=== PATIENT | female | born 1935 | race Two or more races ===

== ENCOUNTER 2020-01-31 10:45 | Outpatient (CLI) | payer OTHER ==
[~2020-01-31 10:45] MED LIST: ROBAXIN500 MG PO
== END 2020-02-04 11:17 | disposition home or self-care (01) ==
LOC: RX STUDY 10:45
PROVIDERS: ATTEND Surgery
DX: R10.2 Pelvic and perineal pain (principal); R15.9 Full incontinence of feces; K59.4 Anal spasm
CPT/HCPCS: 74018; 78266; A9541

== ENCOUNTER 2020-05-15 11:15 | Inpatient (IN) | payer OTHER ==
[~2020-05-15] VITALS: Ht 152.4 cm; Wt 58.1 kg
[2020-05-15] MEDS ORDERED: CARDIZEM LA180 MG PO (15:13)
[2020-05-15] MEDS ORDERED: ADULT LOW DOSE81 M1 PO (15:14)
[2020-05-15] MEDS ORDERED: COZAAR100 MG (15:14)
[2020-05-15] MEDS ORDERED: ALLERGY RELIE15.8 ML NASAL (15:15)
[2020-05-15] MEDS ORDERED: CLONAZEPAM0.5 MG PO (15:15)
[2020-05-22] MEDS ORDERED: KETOCONAZOLE15 GM (08:11)
[2020-05-25] MEDS ORDERED: COLACE100 MG PO (08:35)
[2020-05-25] MEDS ORDERED: INTESTINEX680 M1 PO (08:35)
== END 2020-05-25 10:49 | disposition home or self-care (01) | DRG 331 ==
LOC: O/R 05-22 07:03 → SURG 05-22 07:03 → SURH 05-22 11:15 → SURG 05-22 15:20
PROVIDERS: ADMIT Surgery; ATTEND Surgery
PROC: 0DTN4ZZ Resection of Sigmoid Colon, Percutaneous Endoscopic Approach (ICD-10-PCS; principal; 2020-05-22 12:00)
DX: K62.4 Stenosis of anus and rectum (principal); K59.4 Anal spasm; K59.02 Outlet dysfunction constipation; K57.30 Diverticulosis of large intestine without perforation or abscess without bleeding; D64.9 Anemia, unspecified; R15.9 Full incontinence of feces; I10 Essential (primary) hypertension

== ENCOUNTER 2021-07-17 09:55 | Emergency (ER) | payer OTHER ==
[~2021-07-17] VITALS: Ht 152.4 cm; Wt 54.4 kg
[~2021-07-17 09:55] MED LIST changes: +ADULT LOW DOSE81 M1 PO; +ALLERGY RELIE15.8 ML NASAL; +CARDIZEM LA180 MG PO; +CLONAZEPAM0.5 MG PO; +COLACE100 MG PO; +COZAAR100 MG; +INTESTINEX680 M1 PO; +KETOCONAZOLE15 GM
[2021-07-17] MEDS ORDERED: SALINE NASAL SP88 ML (10:06)
== END 2021-07-17 17:06 | disposition home or self-care (01) ==
LOC: ER 09:55
DX: N39.0 Urinary tract infection, site not specified (principal); Z20.822 Contact with and (suspected) exposure to COVID-19

== ENCOUNTER 2024-09-26 08:29 | Emergency (ER) | payer OTHER ==
[~2024-09-26] VITALS: Ht 152.4 cm; Wt 50.8 kg
[~2024-09-26 08:29] MED LIST changes: +SALINE NASAL SP88 ML
== END 2024-09-26 10:06 | disposition home or self-care (01) ==
LOC: ER 08:42
DX: K64.4 Residual hemorrhoidal skin tags (principal); K57.32 Diverticulitis of large intestine without perforation or abscess without bleeding; I10 Essential (primary) hypertension

== ENCOUNTER 2024-12-13 10:28 | Emergency (ER) | payer OTHER ==
[~2024-12-13] VITALS: Ht 152.4 cm; Wt 49.9 kg
[2024-12-13] MEDS ORDERED: 0.9 % SODIUM CHLORIDE 1,000 ML IV ONE (12:00)
[2024-12-13] MEDS ORDERED: DIATRIZOATE MEGLUMINE, SODIUM 30 ML BOTTLE ONE (12:31)
[2024-12-13 13:03] LABS: BASO % 0.6 % (0.1-1.2); EOS # 0.03 (0.04-0.54); EOS % 0.3 % (0.7-7.0); LYMPH # 1.26 (1.18-3.74); LYMPH % 10.9 % (19.3-53.1); MEAN PLATELET VOLUME 8.30 fl (9.4-12.4); MONO # 0.78 (0.24-0.82); MONO % 6.8 % (4.7-12.5); NEUT # 9.31 (1.56-6.13); NEUT % 80.8 % (34.0-71.1); RED CELL DISTRIBUTION WIDTH 19.1 % (11.6-14.4)
[2024-12-13 13:31] LABS: ALT/SGPT 17.0 U/L (12-78); AST/SGOT 12.0 U/L (15-37); BILIRUBIN TOTAL 0.46 mg/dL (0.3-1.2); BUN CREA RATIO 15.0 (7.0-25.0); CREATININE SERUM 0.55 mg/dL (0.55-1.02); GFR 104.8; GLOBULINA 4.0 G/DL (2.4-3.5); GLUCOSE FASTING 106.0 mg/dL (65-100); OSMOLALITY SERUM 258.0 MOSM/KG (275-295)
[2024-12-13 14:23] LABS: URINE APPEARANCE Clear; URINE BILIRRUBIN Negative (NEGATIVE); URINE BLOOD Negative; URINE COLOR Yellow; URINE GLUCOSE Negative (NEGATIVE); URINE KETONE Negative (NEGATIVE); URINE LEUKOCYTE Small; URINE NITRATE Negative; URINE PROTEIN Negative (NEGATIVE); URINE UROBILINOGEN 0.2 E.U./dl
[2024-12-13 14:27] LABS: URINE BACTERIA 30.0 uL (0.0-1933); URINE EPITHELIAL CELLS 16.2 uL (0.0-38.8); URINE RBC 9.9 uL (0.0-20.8); URINE WBC 62.2 uL (0.0-23.2)
[2024-12-13 14:35] LABS: URINE CAST 0.00 uL (0.0-1.40)
== END 2024-12-13 17:04 | disposition home or self-care (01) ==
LOC: ER 10:29
PROVIDERS: General Practice
DX: K59.00 Constipation, unspecified (principal); I10 Essential (primary) hypertension
CPT/HCPCS: 36415; 74177; 96365; 96366; 99284; J7030; Q9965